=== PATIENT | male | born 2000 | race Caucasian/White ===

== ENCOUNTER → 2022-05-25 | Outpatient (CLI) | payer BC | END | disposition home or self-care (01) | LOC: LABWHC1 08:54 | PROVIDERS: ATTEND Otolaryngology | DX: J30.89 Other allergic rhinitis (principal) | CPT/HCPCS: 36415 ==

== ENCOUNTER 2022-08-13 08:56 | Day surgery (SDC) | payer BC ==
[2022-08-10 11:16] VITALS: BMI 33.0
[~2022-08-13 08:56] MED LIST: DEXAMETHASONE SOD PHOSPHATE 4 MG/ML 1 ML VIAL IV ONE; FAMOTIDINE 20 MG/2 ML VIAL IV PRN; HYDROmorphone 0.5 MG/0.5 ML SYRINGE IVP PRN; LACTATED RINGERS 1,000 ML IV SCH; ONDANSETRON 4 MG/2 ML VIAL IVP PRN; OXYMETAZOLINE 0.05% NASL SPRAY 1 SPRAY BOTTLE EA NOSTRIL PRN; metroNIDAZOLE-NS PMX 500 MG in SALINE 1 100ML.BAG IVPB PRN
[2022-08-13] MEDS ORDERED: SUCCINYLCHOLINE CHLORIDE 200 MG/10 ML VIAL IV ONE (10:01)
[2022-08-13] MEDS ORDERED: LIDOCAINE 2% INJ 20 MG/ML (2 ML VIAL) ONE (10:01)
[2022-08-13] MEDS ORDERED: MIDAZOLAM 2 MG/2 ML VIAL ONE (10:01)
[2022-08-13] MEDS ORDERED: PROPOFOL 10 MG/ML 20 ML VIAL IV ONE (10:01)
[2022-08-13] MEDS ORDERED: DEXAMETHASONE SOD PHOS (MDV) 100 MG/10 ML VIAL ONE (10:01)
[2022-08-13] MEDS ORDERED: fentaNYL (PF) 50 MCG/ML 2 ML AMP ONE (10:01)
[2022-08-13] MEDS ORDERED: LIDOCAINE 2%-EPI 1:100,000 20 ML VIAL SQ ONE ×2 (10:07→10:30)
[2022-08-13] MEDS ORDERED: EPINEPHrine 1 MG/ML (MDV) 30 ML VIAL TOPICAL ONE ×2 (10:34)
[2022-08-13] MEDS ORDERED: FLUORESCEIN STRIPS 1 MG STRIP MISCELLANE ONE (10:42)
[2022-08-13] MEDS ORDERED: BACITRACIN ZINC 500 UNIT/GM OINT 28.4 GM TUBE TOPICAL ONE (10:46)
[2022-08-13] MEDS ORDERED: LACTATED RINGERS 1,000 ML IV ONE ×2 (10:59)
[2022-08-13 11:43] VITALS: TEMP 97.4
--- NOTE | 2022-08-13 11:49 | P.OP ---
Date of Procedure: 08/13/22 Preoperative Diagnosis: Deviated nasal septum Hypertrophy of inferior nasal turbinates bilaterally with obstruction Adenoid hypertrophy with obstruction Postoperative Diagnosis: Same Procedure(s) Performed: Septoplasty Bilateral submucosal resection of the inferior nasal turbinates with outfracturing compression Adenoidectomy by electrofulguration Anesthesia: MIKEY Surgeon: Prosper Corona Estimated Blood Loss (ml): 20 Pathology: other (Sinonasal) Condition: stable Disposition: PACU Indications for Procedure: Patient has severe nasal obstruction was found have a severe deviated nasal septum, large obstructive inferior nasal turbinates and large and obstructive adenoids. Patient's failed irrigation and nasal steroid therapy and after long discussion wished to proceed forward with correction. He does have large tonsils but wished not to do with his tonsils at this time because of the anticipated discomfort. Operative Findings: Patient had a severe deviated nasal septum and large obstructive inferior turbinates and adenoids were so massive a filled the entire nasopharynx Description of Procedure: This patient was taken to the operative room and placed in the supine position. A general inhalation anesthetic was administered to the patient by the department of anesthesia with a functioning IV line in place. The patient was monitored throughout the entire case by the department of anesthesia. The eyes were taped shut for protection. The patient was placed in a slight reverse Trendelenburg position. The patient had previously utilize Afrin nasal spray preoperatively. The nose was evaluated and the septum lateral nasal wall and inferior turbinates were injected with lidocaine 1% with epinephrine 1 100,000 bilaterally. Approximately 10 minutes were allowed wait for full vasoconstrictive effects to take place. At this point a caudal incision was made over the caudal portion of the left septum down to the mucoperichondrium. A mucoperichondrial flap was elevated on the left side and dissection was carried with use of tunnels posteriorly. We then made a crossover incision through the cartilage to the contralateral side and for the mucoperichondrial flap development was performed to the extent of visualization on the contralateral side. After the cartilage was freed with use of several crosshatching incisions and removal of some redundant strips of septal cartilage, the septum was straightened and placed back in the midline. The septum was sutured fixated to the ovarian groove. Excellent straightening occurred and the septum was visibly straight. Incision was closed with a 40 rapid Vicryl. We utilized a running nonlocking fashion for closure of the incision. A quilting stitch was used to reapproximate the septal flaps with use of a 40 rapid Vicryl. Intranasal splints were inserted and fixated at the end of the case. We utilized Soto nasal splints. There will be removed when the patient returns to the office. Attention was then paid to the inferior turbinates. The bilateral inferior turbinates were hypertrophic and obstructive. We entered the anterior portion of the inferior turbinates with use of a microdebrider. We remove bone and submucosal elements with use of a microdebrider bilaterally. The inferior turbinates underwent a submucosal resection with removal of submucosal tissue and bone. We obtained a much better and normal in size for breathing. The inferior turbinates were then outfractured and compressed with a [employer] nasal elevator. Excellent airway was obtained and was symmetric bilaterally. No bleeding was encountered. The mouth was opened with use of a McIvor mouth gag. A red rubber catheter was placed through the nose and out the mouth and used to retract the soft palate and secured with a hemostat. With use of a mirror the nasopharynx was evaluated and the adenoids were found be large and obstructive and problematic. With use of suction electrocoagulation, the adenoids were electrofulgurated and then suctioned through the handpiece. The entire adenoid bed was electrofulgurated liquefied and suction and removed. The adenoidectomy was performed and no bleeding was encountered. Patient tolerated this procedure very well. We took care to avoid any trauma to the lips teeth gums and tongue. We also prior to surgery evaluated the soft palate and did not find any evidence of a submucosal cleft area
[2022-08-13] MEDS ORDERED: oxyCODONE-APAP 5-325MG 1 EACH TAB ONE (13:14)
[2022-08-13 13:33] VITALS: RESP 18
[2022-08-13 14:09] VITALS: BP 136/81; PULSE 81
== END 2022-08-13 14:15 | disposition home or self-care (01) ==
LOC: OR 08:56
PROVIDERS: ATTEND Otolaryngology
DX: J34.2 Deviated nasal septum (principal); J34.3 Hypertrophy of nasal turbinates; J35.2 Hypertrophy of adenoids; J34.89 Other specified disorders of nose and nasal sinuses; J45.909 Unspecified asthma, uncomplicated; Z87.891 Personal history of nicotine dependence; K21.9 Gastro-esophageal reflux disease without esophagitis; F90.9 Attention-deficit hyperactivity disorder, unspecified type; Z88.0 Allergy status to penicillin; Z79.51 Long term (current) use of inhaled steroids; Z79.899 Other long term (current) drug therapy
CPT/HCPCS: 88300; 30520; 30140; 42831; J0171; J2250; J0330; J1100 ×2; J0690; J2405; J3010; J2704; J2001